=== PATIENT | male | born 2000 | race African-American/Black ===

== ENCOUNTER → 2020-05-18 13:05 | Outpatient (CLI) | payer OTHER, SELFPAY ==
--- NOTE | 2020-05-18 13:14 | CDU_ITS ---
Reason For Study: Syncope Rt. Velocities/BP Lt. Velocities/BP Prox CCA 131/16 cm/sec. Prox CCA 158/30 cm/sec. Mid CCA 134/21 cm/sec. Mid CCA 129/29 cm/sec. Dist CCA 108/27 cm/sec. Dist CCA 89/24 cm/sec. Prox ICA 118/27 cm/sec. Prox ICA 95/22 cm/sec. Mid ICA 81/29 cm/sec. Mid ICA 81/34 cm/sec. Dist ICA 89/40 cm/sec. Dist ICA 118/43 cm/sec. Rt. ICA/CCA = 0.9. Lt. ICA/CCA = 0.9. Prox ECA 111/23 cm/sec. Prox ECA 94/23 cm/sec. Rt. Vert. 68/16 cm/sec. Lt. Vert. 58/19 cm/sec. Right Extracranial There is no significant atherosclerotic plaque noted in the right common carotid artery. There is no significant atherosclerotic plaque noted in the right internal carotid artery. There is no significant atherosclerotic plaque noted in the right external carotid artery. Antegrade flow is noted in the right vertebral artery. Left Extracranial There is no significant atherosclerotic plaque noted in the left common carotid artery. There is no significant atherosclerotic plaque noted in the left internal carotid artery. There is no significant atherosclerotic plaque noted in the left external carotid artery. Antegrade flow is noted in the left vertebral artery. Interpretation Summary No significant atherosclerotic plaque or stenosis noted in the internal carotid arteries bilaterally. Flow within the vertebral arteries is antegrade bilaterally. Ordering Physician: Sergio Howell Referring Physician: Sergio Howell Performed By: Samantha Plaza, RDCS, RVT
--- NOTE | 2020-05-18 13:14 | ECHOD_ITS ---
Reason For Study: SYNCOPE Procedure This was a 2D Doppler, Color Flow transthoracic echocardiogram. Exam performed in department. Left Ventricle Normal LV size. The estimated ejection fraction is 55 %. No evidence for diastolic dysfunction. No regional wall motion abnormalities noted. Right Ventricle Normal RV size. Normal systolic function. Atria Normal left atrium. Normal right atrium. No doppler evidence for ASD. Mitral Valve There is no mitral valve stenosis. No mitral valve insufficiency. Tricuspid Valve There is no tricuspid stenosis. Trivial tricuspid valve insufficiency. Unable to estimate RV systolic pressure due to insufficient tricuspid regurgitant envelope. Aortic Valve Trisinus/trileaflet aortic valve. There is no aortic stenosis. No aortic valve insufficiency. Pulmonic Valve There is no pulmonic valvular stenosis. Trivial pulmonic valve insufficiency. Great Vessels Normal aortic root. Pericardium/Pleural No pericardial effusion. Medication 22 gauge I.V. with prn adaptor inserted into right arm. Performed a rapid injection of agitated mix of 9 cc saline and 1cc air to assess for atrial septal defect. MMode/2D Measurements & Calculations LVIDd: 5.8 cm IVSd: 1.3 cm Ao root diam: 2.9 cm LVIDs: 3.6 cm LVPWd: 0.96 cm RVDd: 3.5 cm FS: 37.3 % LAV(MOD-bp): 54.5 ml LA A4 area: 16.6 cm2 LA dimension(2D): 3.9 cm LAV(MOD-bp) Indexed: 24.3 ml/m2 LAV(MOD-sp2): 66.9 ml LAV(MOD-sp4): 41.4 ml Time Measurements MV dec time: 0.23 sec Doppler Measurements & Calculations MV E max morteza: 58.0 cm/sec Lat Peak E' Morteza: 14.3 cm/sec Med Peak E' Morteza: 14.8 cm/sec MV A max morteza: 38.0 cm/sec E/E' lat: 4.0 E/E' med: 3.9 MV E/A: 1.5 Ao V2 max: 104.7 cm/sec LV V1 max: 89.6 cm/sec PA V2 max: 90.7 cm/sec Ao max P.4 mmHg LV V1 max P.2 mmHg Interpretation Summary The estimated ejection fraction is 55 %. No evidence for diastolic dysfunction. Ordering Physician: Lynda^Sergio^^^ Referring Physician: Sergio Howell Performed By: Angelica Llamas RVT, RDCS and Student
== END ==
PROVIDERS: Referring Provider Family Medicine; Visit Provider Family Medicine
DX: R55 Syncope and collapse (principal)
CPT/HCPCS: 93306; 93880; A4216